=== PATIENT | male | born 1980 | race Caucasian/White ===

== ENCOUNTER 2018-02-12 17:18 | Emergency (ER) | payer OTHER, SELFPAY ==
[2018-02-12] MEDS ORDERED: NA CHLORIDE 0.9% 1,000 ML ONE ×2 (18:01→19:28)
[2018-02-12 18:08] LABS: Absolute Monocytes 0.8 K/uL (0.1-1.3); Absolute Neutrophil 6.9 K/uL (1.8-8.0); Basophils % 0.9 % (0-1.3); Eosinophils % 0.5 % (0-4.4); Hematocrit 42.6 % (39.6-49.0); MCH 29.6 pg (27.0-35.0); MCV 88.1 fL (80-100); MPV 10.6 fL (7.6-11.3); Monocytes % 8.4 % (3.3-12.3); RBC Red Blood Cell Count 4.84 M/uL (4.33-5.43)
[2018-02-12 18:16] LABS: Barbiturates NEGATIVE; Benzodiazepines POSITIVE; Bicarbonate 26 mEq/L (21-31); Cocaine NEGATIVE; Glucose Level 104 mg/dL (65-120); METHAMPHETAM NEGATIVE; Opiates NEGATIVE; Phencyclidine NEGATIVE; Potassium 3.8 mEq/L (3.6-5.0); Protime INR 1.08; Sodium Level 138 mEq/L (135-145); THC Cannibis POSITIVE
[2018-02-12 18:22] LABS: ALT/SGPT 35 IU/L (10-60); AST/SGOT 36 IU/L (10-42); Albumin 4.7 g/dL (3.2-5.5); Alkaline Phosphatase 49 IU/L (42-121); BUN Blood Urea Nitrogen 25 mg/dL (6-20); Bilirubin Direct < 0.1 mg/dL (0-0.2); Bilirubin Total 0.7 mg/dL (0.3-1.2); Glomerular Filtration Rate 85 mL/min (=/>90); Protein, Total 7.8 g/dL (6.0-8.3); Salicylates Level < 4.0 mg/dl (<30)
[2018-02-12 18:29] LABS: Urine Blood NEGATIVE (NEG); Urine Glucose NEGATIVE (NEG); Urine Protein NEGATIVE (NEG)
[2018-02-12 18:54] LABS: Thyroid Stimulating Hormone 2.79 uIU/mL (0.34-5.60)
[2018-02-12 18:58] LABS: Alcohol Serum/Plasma < 10 mg/dl
--- NOTE | 2018-02-12 19:49 | ER ---
Nurse's Notes [facility] Name: Tony Bergman Age: 37 yrs Sex: Male : 1980 Arrival Date: 02/12/2018 Time: 17:23 Bed 3 Private MD: Diagnosis: Altered mental status. Behavior disorder Presentation: 02/12 17:28 Presenting complaint: EMS states: He works at [employer] and was behaving erratically and jl7 rubbing people's necks so they called PD. PD reported the pt began fighting them so PD tased the pt and took him to care home. The employees at [employer] reported this is not normal behavior for the pt. Transition of care: Police Custody. Onset of symptoms was February 12, 2018. Care prior to arrival: None. 17:28 Method Of Arrival: EMS: [facility] jl7 17:28 Acuity: NIDIA 3 jl7 Historical: - Allergies: 17:35 No Known Allergies; jl7 - Home Meds: 17:35 None [Active]; jl7 - PMHx: 17:35 None; jl7 - PSHx: 17:35 right knee; jl7 - Immunization history:: Adult Immunizations unknown. - Social history:: Smoking status: Patient/guardian denies using tobacco, but has a distant history of tobacco abuse. Screenin:37 Abuse screen: Denies threats or abuse. Nutritional screening: No deficits noted. ae1 Tuberculosis screening: No symptoms or risk factors identified. Fall Risk None identified. Assessment: 17:58 Reassessment: Patient is making inappropriate comments about his penis, stating the ae1 staff can look at it, "I have a small pecker.". General: Appears comfortable, Behavior is cooperative, Patient is talkative, commenting on staff appearances. . Pain: Denies pain. Neuro: Level of Consciousness is awake, alert, obeys commands, Oriented to person, place, situation, When patient was asked why he was transported to the hospital he responded "I was confused". 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 Cardiovascular: Patient's skin is warm and dry. Respiratory: Airway is patent Respiratory effort is even, unlabored, Respiratory pattern is regular, symmetrical. GI: No signs and/or symptoms were reported involving the gastrointestinal system. : No signs and/or symptoms were reported regarding the genitourinary system. EENT: No signs and/or symptoms were reported regarding the EENT system. Derm: Skin is pink, warm \\T\\ dry. Musculoskeletal: No signs and/or symptoms reported regarding the musculoskeletal system. 19:05 General: Appears in no apparent distress. Behavior is cooperative, PD at bedside. Pt ea denies suicidal and homicidal ideations.. Pain: Denies pain. Neuro: Level of Consciousness is awake, alert, obeys commands, Oriented to person, place, situation. Cardiovascular: Patient's skin is warm and dry. Respiratory: Airway is patent Respiratory effort is even, unlabored, Respiratory pattern is regular, symmetrical. GI: No signs and/or symptoms were reported involving the gastrointestinal system. : No signs and/or symptoms were reported regarding the genitourinary system. EENT: No signs and/or symptoms were reported regarding the EENT system. Derm: Skin is pink, warm \\T\\ dry. Musculoskeletal: No signs and/or symptoms reported regarding the musculoskeletal system. 19:11 Reassessment: Report and hand off care to Roddy Woodard RN. ae1 19:40 Reassessment: PD at bedside, officer gave pt a choice to stay in ER or go to care home, pt ea reported he would rather go to care home. Physician notified. 19:55 Reassessment: pt given a sandwich and soda. [place] [employer] released pt from custody. Dr. Nisreen umanzor1 spoke with pt and is transferring pt to appropriate facility. 20:05 Reassessment: Patient is alert, oriented x 3, equal unlabored respirations, skin ea warm/dry/pink. 21:41 Reassessment: Patient is alert, oriented x 3, equal unlabored respirations, skin ea warm/dry/pink. Denies pain. 22:25 Reassessment: pt is yelling, uncooperative, roaming around in other room Dr Donato bb notified new orders received see JAN. 22:30 Reassessment: Pt yelling out of the room attempting to get staff attention, pt ea redirected, verbalized the understanding that yelling is disruptive to other patients. 23:06 Reassessment: Patient is alert, oriented x 3, equal unlabored respirations, skin ea warm/dry/pink. Pt on stretcher reading magazine, no s/s of pain or discomfort noted at this time. 23:33 Reassessment: pt resting with eyes closed, respirations even and unlabored, chest ea expansions even and symmetrical. No obvious s/s of pain or discomfort noted at this time. 02/13 00:34 Reassessment: Patient is alert, oriented x 3, equal unlabored respirations, skin ea warm/dry/pink. Discharge instructions given to patient, verbalized understanding of instruction. Patient denies pain at this time. Psych: 02/12 17:30 Safety Checks: Patient arrived in police custody, officer remains at bedside. ae1 17:30 Subjective: Patient's mood is Patient is talkative and states " I feel great!" ae1 Delusions are Patient states "I was confused" when asked why he was transported to the ER. Objective: Patient is cooperative, Speech is loud, rambling, Affect is inappropriate. Interventions: Patient placed in hospital gown. Urine collected and sent for urine drug test. crime prevention police officer at bedside. Suicide Risk Assessment: Sad Person Scale: Sex of patient: Male: Score 1 point. Age of patient: Score 0 point if patient falls outside of specified age parameters. 19:10 Pt denies substance abuse. ea Vital Signs: 17:35 BP 155 / 89; Pulse 97; Resp 18 S; Temp 98.4(O); Pulse Ox 97% on R/A; Weight 106.59 kg iw (R); Height 6 ft. 2 in. (187.96 cm) (R); Pain 1/10; 18:49 BP 156 / 85; Pulse 69; Pulse Ox 96% on R/A; ap3 19:17 BP 145 / 73; Pulse 71; Resp 18; Pulse Ox 99% on R/A; Pain 0/10; ea 20:49 BP 147 / 86; Pulse 70; Resp 18; Pulse Ox 100% on R/A; Pain 0/10; ea 22:10 BP 142 / 86; Pulse 68; Resp 18; Pulse Ox 99% on R/A; ea 23:15 BP 140 / 72; Pulse 68; Resp 18 S; Pulse Ox 99% on R/A; ea 02/13 00:20 BP 138 / 78; Pulse 70; Resp 18; Temp 98.2; Pulse Ox 100% ; Pain 0/10; ea 02/12 17:35 Body Mass Index 30.17 (106.59 kg, 187.96 cm) iw ED Course: 02/12 17:23 Patient arrived in ED. jl7 17:24 Blake Chan MD is Attending Physician. [facility] 17:28 Patricia Luna RN is Primary Nurse. jl7 17:34 Triage completed. jl7 17:35 Arm band placed on right wrist. jl7 17:40 Attending Physician role handed off by Blake Chan MD 17:40 Babak Nielson MD is Attending Physician. 18:04 Bed in low position. Call light in reach. Side rails up X2. Adult w/ patient. Pulse ox ae1 on. NIBP on. 18:05 Inserted saline lock: 20 gauge in left antecubital area, using aseptic technique. ae1 ,using aseptic technique. by Caitlin Javed, chief nursing executive, using aseptic technique. Blood collected. 19:14 Report given to MAYNOR Woodard. jl7 19:49 Primary Nurse role handed off by Patricia Luna RN rg2 20:05 Yamilet Hope RN is Primary Nurse. ea 02/13 00:38 No provider procedures requiring assistance completed. IV discontinued, intact, ea bleeding controlled, No redness/swelling at site. Pressure dressing applied. Administered Medications: 02/12 18:40 Drug: NS 0.9% 1000 ml Route: IV; Rate: 1 bolus; Site: left antecubital; ae1 20:41 Follow up: Response: No adverse reaction; IV Status: Completed infusion ea 18:44 Drug: NS 0.9% 1000 ml Route: IV; Rate: 1 bolus; Site: left antecubital; ae1 20:41 Follow up: Response: No adverse reaction; IV Status: Completed infusion ea 22:31 Not Given (Patient Refused): Geodon 20 mg IM once bb Outcome: 19:11 Attestation : I agree with the charting done by Caitlin Javed, chief nursing executive. . ae1 19:49 ER care complete, transfer ordered by . gs 02/13 00:05 Discharge ordered by . pkl 00:07 Discharge ordered by . pkl 00:[facility] him to his vehicle parked at [employer]. ea 00:36 Condition: improved 00:36 Discharge instructions given to patient, Instructed on discharge instructions, follow up and referral plans. Demonstrated understanding of instructions, follow-up care. 00:56 Patient left the ED. ea Signatures: Jose Alberto Del Valle rg2 Blake Chan MD MD cha Lam, Pin, MD MD pkl Ballard, Brenda, RN RN bb Abigail Constantino RN RN iw Madeline Saunders, RN RN ak1 Joe Herzog RN RN ae1 Patricia Luna RN RN jl7 Yamilet Hope RN RN ea Starr, Gregory, MD MD gs Prokisch, Amanda ap3 Corrections: (The following items were deleted from the chart) 02/12 18:42 17:35 BP 155 / 89; Pulse 97bpm; Resp 86bpm; Pulse Ox 97% RA; Temp 98.4F Oral; 106.59 kg iw Reported; Height 6 ft. 2 in. Reported; BMI: 30.1; Pain 1/10; jl7 19:15 19:12 Interventions: ae1 ae1 20:48 19:05 General: Appears in no apparent distress. Behavior is cooperative, PD at ea bedside.. ea
--- NOTE | 2018-02-12 19:49 | EDPHYS ---
Physician Documentation [facility] Name: Tony Bergman Age: 37 yrs Sex: Male : 1980 Arrival Date: 02/12/2018 Time: 17:23 Bed 3 Private MD: ED Physician Babak Nielson HPI: 02/12 19:27 This 37 yrs old Male presents to ER via EMS with complaints of Psych Problem. gs 19:27 The patient presents to the emergency department with psychosis, has delusions. Onset: gs The symptoms/episode began/occurred acutely, this morning. Associated signs and symptoms: Pertinent positives; anxiety, delusions, paranoia. Severity of symptoms: At their worst the symptoms were severe in the emergency department the symptoms have improved markedly. It is unknown whether or not the patient has had similar symptoms in the past. went to work erratic behavior, touching people and claiming to be Jamin. Historical: - Allergies: 17:35 No Known Allergies; jl7 - Home Meds: 17:35 None [Active]; jl7 - PMHx: 17:35 None; jl7 - PSHx: 17:35 right knee; jl7 - Immunization history:: Adult Immunizations unknown. - Social history:: Smoking status: Patient/guardian denies using tobacco, but has a distant history of tobacco abuse. ROS: 19:27 Constitutional: Negative for fever. gs 19:27 All other systems are negative. 02/13 00:07 Eyes: Negative for injury, pain, redness, and discharge. pkl Exam: 02/12 19:27 Head/Face: Normocephalic, atraumatic. Eyes: Pupils equal round and reactive to light, gs extra-ocular motions intact. Lids and lashes normal. Conjunctiva and sclera are non-icteric and not injected. Cornea within normal limits. Periorbital areas with no swelling, redness, or edema. ENT: Nares patent. No nasal discharge, no septal abnormalities noted. Tympanic membranes are normal and external auditory canals are clear. Oropharynx with no redness, swelling, or masses, exudates, or evidence of obstruction, uvula midline. Mucous membranes moist. Neck: Trachea midline, no thyromegaly or masses palpated, and no cervical lymphadenopathy. Supple, full range of motion without nuchal rigidity, or vertebral point tenderness. No Meningismus. Chest/axilla: Normal chest wall appearance and motion. Nontender with no deformity. No lesions are appreciated. Cardiovascular: Regular rate and rhythm with a normal S1 and S2. No gallops, murmurs, or rubs. Normal PMI, no JVD. No pulse deficits. Respiratory: Lungs have equal breath sounds bilaterally, clear to auscultation and percussion. No rales, rhonchi or wheezes noted. No increased work of breathing, no retractions or nasal flaring. Abdomen/GI: Soft, non-tender, with normal bowel sounds. No distension or tympany. No guarding or rebound. No evidence of tenderness throughout. Back: No spinal tenderness. No costovertebral tenderness. Full range of motion. Skin: Warm, dry with normal turgor. Normal color with no rashes, no lesions, and no evidence of cellulitis. MS/ Extremity: Pulses equal, no cyanosis. Neurovascular intact. Full, normal range of motion. Neuro: Awake and alert, GCS 15, oriented to person, place, time, and situation. Cranial nerves II-XII grossly intact. Motor strength 5/5 in all extremities. Sensory grossly intact. Cerebellar exam normal. Normal gait. Constitutional: The patient appears alert, awake. Psych: Behavior/mood is anxious, Affect is animated, Oriented to person, place, time, Patient has no thoughts/intents to harm self or others. Judgement / Insight is impaired. Delusions/hallucinations are present and described as delusions of grandeur. Vital Signs: 17:35 BP 155 / 89; Pulse 97; Resp 18 S; Temp 98.4(O); Pulse Ox 97% on R/A; Weight 106.59 kg iw (R); Height 6 ft. 2 in. (187.96 cm) (R); Pain 1/10; 18:49 BP 156 / 85; Pulse 69; Pulse Ox 96% on R/A; ap3 19:17 BP 145 / 73; Pulse 71; Resp 18; Pulse Ox 99% on R/A; Pain 0/10; ea 20:49 BP 147 / 86; Pulse 70; Resp 18; Pulse Ox 100% on R/A; Pain 0/10; ea 22:10 BP 142 / 86; Pulse 68; Resp 18; Pulse Ox 99% on R/A; ea 23:15 BP 140 / 72; Pulse 68; Resp 18 S; Pulse Ox 99% on R/A; ea 02/13 00:20 BP 138 / 78; Pulse 70; Resp 18; Temp 98.2; Pulse Ox 100% ; Pain 0/10; ea 02/12 17:35 Body Mass Index 30.17 (106.59 kg, 187.96 cm) iw MDM: 02/12 17:24 Patient medically screened. [facility] 19:27 Differential diagnosis: drug withdrawal. acute psychotic break, depression, psychosis gs secondary to non-compliance. Data reviewed: vital signs, nurses notes. Response to treatment: the patient's symptoms have mildly improved after treatment, and as a result, I will send to psych facility. 02/13 00:00 ED course: Patient alert. Said he is not suicidal or homicidal.. pkl 00:07 ED course: Patient advised to follow up with his PCP ( Dr. Angel ) for further pkl evaluations. 02/12 17:25 Order name: Acetaminophen; Complete Time: 19:54 [facility] 02/12 17:25 Order name: Basic Metabolic Panel; Complete Time: 19:54 [facility] 02/12 17:25 Order name: CBC with Diff; Complete Time: 18:39 donna 02/12 17:25 Order name: ETOH Level; Complete Time: 19:54 [facility] 02/12 17:25 Order name: Hepatic Function; Complete Time: 19:54 [facility] 02/12 17:25 Order name: PT-INR; Complete Time: 18:39 donna 02/12 17:25 Order name: Ptt, Activated; Complete Time: 18:39 [facility] 02/12 17:25 Order name: Salicylate; Complete Time: 19:54 [facility] 02/12 17:25 Order name: Urine Drug Screen; Complete Time: 18:39 donna 02/12 17:25 Order name: TSH; Complete Time: 19:54 [facility] 02/12 18:05 Order name: Urine Dipstick--Ancillary (enter results); Complete Time: 18:39 ag 02/12 17:25 Order name: EKG; Complete Time: 17:26 donna 02/12 17:25 Order name: EKG - Nurse/Tech; Complete Time: 18:22 donna 02/12 17:25 Order name: IV Saline Lock; Complete Time: 17:56 [facility] 02/12 17:25 Order name: Labs collected and sent; Complete Time: 17:56 [facility] 02/12 17:25 Order name: Urine Dipstick-Ancillary (obtain specimen); Complete Time: :56 [facility] Administered Medications: 02/12 18:40 Drug: NS 0.9% 1000 ml Route: IV; Rate: 1 bolus; Site: left antecubital; ae1 20:41 Follow up: Response: No adverse reaction; IV Status: Completed infusion ea 18:44 Drug: NS 0.9% 1000 ml Route: IV; Rate: 1 bolus; Site: left antecubital; ae1 20:41 Follow up: Response: No adverse reaction; IV Status: Completed infusion ea 22:31 Not Given (Patient Refused): Geodon 20 mg IM once bb Disposition: 02/13/18 00:07 Discharged to Home. Impression: Altered mental status. Behavior disorder. - Condition is Stable. - Medication Reconciliation Form, Thank You Letter, Antibiotic Education, Prescription Opioid Use, Work release form form. - Follow up: Private Physician; When: 1 - 2 days; Reason: Re-evaluation by your physician. - Problem is new. - Symptoms have improved. Signatures: Dispatcher [employer] EDUT Blake Chan MD MD cha Lam, Pin, MD MD pkl Ballard, Brenda RN RN Joe Zelaya RN RN Patricia Martinez RN RN jl7 Yamilet Hope RN RN ea Starr, Gregory, MD MD gs
[2018-02-12] MEDS ORDERED: ZIPRASIDONE MESYLA 20 MG/VIAL IM ONE (22:41)
[2018-02-12] MEDS ORDERED: WATER FOR INJ,STERILE 10 ML ONE (22:41)
--- NOTE | 2018-02-13 05:07 | EKG ---
Test Date: 2018-02-12 Test Time: 18:17:37 Senior [employer] Database Developer: LAURIE MEASUREMENT RESULTS: Intervals: Rate: 74 IL: 170 QRSD: 94 QT: 380 QTc: 421 [place]: P: 29 IL: 170 QRS: 31 T: 22 INTERPRETIVE STATEMENTS: Normal sinus rhythm Normal ECG No previous ECG available for comparison Electronically Signed On 02-13-18 05:06:46 CDT by Gabriel Mathias
== END 2018-02-13 00:56 | disposition home or self-care (01) ==
LOC: ER 17:18
DX: F91.9 Conduct disorder, unspecified
CPT/HCPCS: 36415; 80048; 80076; 80307; 80320; 80329; 81003; 84443; 85025; 85610; 85730; 93005; 96360; 96361; 99284; J3486; J7030